=== PATIENT | female | born 1970 | race Two or more races ===

== ENCOUNTER 2017-03-03 13:45 | Emergency (ER) | payer BC, MEDICAID ==
[~2017-03-03] VITALS: Ht 157.5 cm; Wt 92.5 kg
[~2017-03-03 13:45] MED LIST: FERR325T28 PO; LISI-607 PO; METF500T4 PO
--- NOTE | 2017-03-03 14:10 | NUR ---
PATIENT PRESENT TO ER C/O RIGHT HAND PAIN, S/P FALL AT HOME YESTERDAY. PATIENTS UNABLE TO FULLY MOVE RIGHT THUMB. PATIENT REMAINS A/OX 4. BREATHING EVEN AND UNLABORED. SAFETY AND COMFORT MEASURES IN PLACE. AWAITING MD ORDERS.
[2017-03-03] MEDS ORDERED: HYDROCODONE/APAP 10/325MG 1 EA TABLET ONE (15:12)
[2017-03-03] MEDS ORDERED: ONDANSETRON 4 MG TAB.RAPDIS ONE (15:12)
[2017-03-03] MEDS ORDERED: ONDANSETRON 4 MG TAB.RAPDIS SL ONE (15:30)
[2017-03-03] MEDS ORDERED: HYDROCODONE/APAP 10/325MG 1 EA TABLET PO ONE (15:30)
--- NOTE | 2017-03-03 15:34 | NUR ---
MEDICATED PATIENT PER MD ORDERS.
--- NOTE | 2017-03-03 15:50 | NUR ---
XR TECH AT BEDSIDE.
[2017-03-03 16:59] VITALS: BP 142/89
--- NOTE | 2017-03-03 17:03 | NUR ---
Patient discharged to home in stable condition. Written and verbal after care instructions given. Patient verbalizes understanding of instruction. Ambulatory with a steady gait.
== END 2017-03-03 17:02 | disposition home or self-care (01) ==
LOC: ER 13:46
DX: S69.91XA Unspecified injury of right wrist, hand and finger(s), initial encounter (principal); S99.911A Unspecified injury of right ankle, initial encounter; S89.92XA Unspecified injury of left lower leg, initial encounter; E11.9 Type 2 diabetes mellitus without complications; Z90.710 Acquired absence of both cervix and uterus; Z90.89 Acquired absence of other organs; W19.XXXA Unspecified fall, initial encounter; Y93.89 Activity, other specified; Y92.89 Other specified places as the place of occurrence of the external cause; Y99.8 Other external cause status
CPT/HCPCS: 73130; 73564; 73610; 99284; A4606; Q0162; Z7610

== ENCOUNTER 2019-03-29 16:06 | Emergency (ER) | payer MEDICAID ==
[~2019-03-29] VITALS: Ht 154.9 cm; Wt 88.5 kg
[~2019-03-29 16:06] MED LIST changes: +METF-440 PO; -METF500T4 PO
[2019-03-29 16:26] VITALS: BP 134/98
== END 2019-03-29 16:56 | disposition home or self-care (01) ==
LOC: ER 16:07
DX: T78.1XXA Other adverse food reactions, not elsewhere classified, initial encounter (principal); H60.92 Unspecified otitis externa, left ear; E11.9 Type 2 diabetes mellitus without complications; X58.XXXA Exposure to other specified factors, initial encounter

== ENCOUNTER 2022-05-30 10:07 | Emergency (ER) | payer MEDICAID ==
[~2022-05-30] VITALS: Ht 154.9 cm; Wt 103.0 kg
[~2022-05-30 10:07] MED LIST changes: -LISI-607 PO; +LISI-768 PO
--- NOTE | 2022-05-30 10:20 | NUR ---
TO ER BED 4, C/O WOKE UP THIS MORNING W/ HEADACHE AND DIZZINESS, AAOX3, BREATHING EVEN AND NON LABORED, CONNECTED TO MONITOR, AWAITING MD CAMARA
--- NOTE | 2022-05-30 10:24 | NUR ---
SEEN AND EXAMINED BY DR MORALES
[2022-05-30] MEDS ORDERED: ONDANSETRON HCL/PF 4 MG/2 ML VIAL ONE (10:28)
[2022-05-30] MEDS ORDERED: MORPHINE SULFATE INJ 4 MG/ML DISP.SYRIN ONE (10:29)
--- NOTE | 2022-05-30 10:38 | NUR ---
[employer] AT BEDSIDE FOR XRAY
[2022-05-30] MEDS: ONDANSETRON HCL/PF 4 MG/2 ML VIAL IVP ONE (10:50)
[2022-05-30] MEDS: IV NS 0.9% 1,000 ML BAG IV ONE (10:50)
[2022-05-30] MEDS: MORPHINE SULFATE INJ 2 MG/ML DISP.SYRIN IV ONE (10:50)
[2022-05-30 11:09] LABS: BASOPHILS % (AUTO) 0.5 % (0.0-2.0); EOSINOPHILS % (AUTO) 0.8 % (0.0-6.0); HEMATOCRIT 43 % (33-45); HEMOGLOBIN 14.1 g/dL (11.5-14.8); LYMPHOCYTES # (AUTO) 1.6 K/uL (0.8-4.8); MEAN CORPUSCULAR HGB CONC 33 g/dl (31.0-36.0); MEAN CORPUSCULAR VOLUME 85 fL (82-100); MONOCYTES # (AUTO) 0.3 K/uL (0.1-1.30); MONOCYTES % (AUTO) 5.1 % (2.0-12.0); NEUTROPHILS # (AUTO) 3.8 K/uL (1.8-8.9); NEUTROPHILS % (AUTO) 65.6 % (43.0-81.0); PLATELET COUNT (AUTO) 193 K/uL (150-450); RED BLOOD CELL COUNT(AUTO) 5.12 MIL/uL (4.0-5.2); WHITE BLOOD COUNT (AUTO) 5.8 K/uL (4.3-11.0)
[2022-05-30 11:20] LABS: BILIRUBIN,URINE NEGATIVE (NEGATIVE); COLOR,URINE YELLOW (YELLOW); LEUKOCYTE ESTERASE ,URINE NEGATIVE (NEGATIVE); NITRITE, URINE NEGATIVE (NEGATIVE); PROTEIN,URINE NEGATIVE (NEGATIVE); UGLUCOSE 250 MG/DL mg/dL (NEGATIVE); UROBILINOGEN,URINE 0.2 EU/dL (0.2)
[2022-05-30 11:25] LABS: ALBUMIN 3.8 g/dL (3.4-5.0); BILIRUBIN,DIRECT 0.1 mg/dL (0.0-0.2); BILIRUBIN,TOTAL 0.5 mg/dL (0.2-1.0); CALCIUM, SERUM 9.7 mg/dL (8.5-10.1); CREATININE 0.7 mg/dL (0.6-1.3); TOTAL PROTEIN, SERUM 7.4 g/dL (6.4-8.2)
--- NOTE | 2022-05-30 11:56 | NUR ---
IV removed. Catheter intact and site benign. Pressure and 4x4 applied to site. No bleeding noted.Patient discharged to home in stable condition. Written and verbal after care instructions given. Patient verbalizes understanding of instruction.
[2022-05-30 11:57] VITALS: BP 142/91
== END 2022-05-30 11:58 | disposition home or self-care (01) ==
LOC: ER 10:18
DX: E11.65 Type 2 diabetes mellitus with hyperglycemia (principal); I10 Essential (primary) hypertension; M79.7 Fibromyalgia; Z79.899 Other long term (current) drug therapy
CPT/HCPCS: 99284; 96374; 71045; 96361; 96375; 85025; 80048; 82010; 83690; 80076; 81003; 36415; 82962; J2270; J2405; J7030